=== PATIENT | female | born 1980 | race African-American/Black ===

== ENCOUNTER 2016-11-21 17:52 | Emergency (ER) | payer OTHER ==
[~2016-11-21 17:52] MED LIST: ABILIFY10 MG PO; ALBUTEROL17 G1 IH; ALBUTEROL17 GM IH; MICONAZOLE NITR45 GM VG; Motrin PO; NAPROSYN500 MG PO; NATALCARE RX1 TABLET PO; PRENATAL1 EACH PO; Percocet 5/325,Endoc PO; ZOLOFT50 MG PO
[2016-11-21 18:19] VITALS: BP 119/63
== END 2016-11-21 18:21 | disposition home or self-care (01) ==
LOC: EME 17:52
DX: S80.02XA Contusion of left knee, initial encounter (principal); V49.9XXA Car occupant (driver) (passenger) injured in unspecified traffic accident, initial encounter
CPT/HCPCS: 99281; 99283

== ENCOUNTER 2017-01-26 14:45 | Emergency (ER) | payer OTHER ==
[~2017-01-26] VITALS: Ht 190.5 cm; Wt 67.8 kg
[2017-01-26 14:53] VITALS: BP 130/78
== END 2017-01-26 17:37 | disposition left against medical advice (07) ==
LOC: EME 14:45
DX: K08.89 Other specified disorders of teeth and supporting structures (principal); Z53.21 Procedure and treatment not carried out due to patient leaving prior to being seen by health care provider